=== PATIENT | male | born 2000 | race Caucasian/White ===

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

== ENCOUNTER 2018-07-15 15:58 | Emergency (ER) | payer OTHER ==
[~2018-07-15] VITALS: Ht 170.2 cm; Wt 71.7 kg
[2018-07-15 16:02] VITALS: BP 91/63
--- NOTE | 2018-07-15 16:08 | NUR ---
PATIENT AMBULATED TO ER BED 6
--- NOTE | 2018-07-15 16:25 | NUR ---
PATIENT PRESENTS TO ED WITH C/O SYNCOPE 2 DAYS AGO. PT STATES HE FELT LIGHT HEADED, LOST VISION THEN WOKE UP ON FLOOR. STATES THAT HE HIT BACK OF HEAD ON TILE. SMALL ABRASION NOTED ON BACK OF PT HEAD. MEMORY INTACT, SPEECH CLEAR, GAIT STEADY, FACIAL SYMMETRY INTACT, PERRLA, AAOX4. DENIES N/V/D; LUNGS CLEAR BL; HR EVEN AND REGULAR; PT DENIES ANY FEVER, CP, SOB, OR COUGH AT THIS TIME; DENIES PAIN, VSS; PATIENT POSITIONED FOR COMFORT; HOB ELEVATED; BEDRAILS UP X2; BED DOWN. ER MD MADE AWARE OF PT STATUS.
--- NOTE | 2018-07-15 16:28 | NUR ---
Patient being evaluated by physician at bedside.
--- NOTE | 2018-07-15 17:22 | NUR ---
PT IS RESTING IN BED, NO S/S OF DISTRESS, DENIES PAIN.
[2018-07-15 18:00] VITALS: BP 110/51
--- NOTE | 2018-07-15 18:00 | NUR ---
Patient discharged with v/s stable. Written and verbal after care instructions given and explained. Patient verbalized understanding. Ambulatory with by parent. All questions addressed prior to discharge. Advised to follow up with PMD.
== END 2018-07-15 18:00 | disposition home or self-care (01) ==
LOC: MED 15:58
DX: R55 Syncope and collapse (principal); M54.9 Dorsalgia, unspecified
CPT/HCPCS: 93005; 99283

== ENCOUNTER 2020-02-11 01:52 | Emergency (ER) | payer OTHER ==
[~2020-02-11] VITALS: Ht 170.2 cm; Wt 70.8 kg
[2020-02-11 01:55] VITALS: BP 101/62
--- NOTE | 2020-02-11 02:15 | NUR ---
PT HAS HAD NUMBNESS AND INTERMITTENT PAIN TO RIGHT HAND X 1 MONTH. PT WAS WOKEN UP OUT OF SLEEP DUE TO THE SEVERE PAIN TO MIDDLE AND RING FINGER. PT HAS E[employer] TO BOTH HANDS AT THIS TIME, SKIN INTACT, NO SWELLING OR REDNESS AND PT DENIES ANY KIND OF PRIOR TRAUMA. PT IN BED, BED IN LOWEST POSITION AND SIDERAIL UP X 1. NKA NO HX
--- NOTE | 2020-02-11 02:20 | NUR ---
WRIST AND FOREARM SPLINT PLACED BY PATRICA WASHINGTON.
[2020-02-11 02:28] VITALS: BP 101/62
--- NOTE | 2020-02-11 02:30 | NUR ---
Patient discharged with v/s stable. Written and verbal after care instructions given and explained. Patient verbalized understanding. Ambulatory with steady gait. All questions addressed prior to discharge. Advised to follow up with PMD.
== END 2020-02-11 02:30 | disposition home or self-care (01) ==
LOC: MED 01:52
DX: G56.01 Carpal tunnel syndrome, right upper limb (principal)
CPT/HCPCS: 99283

== ENCOUNTER 2021-07-17 01:28 | Emergency (ER) | payer OTHER ==
[~2021-07-17] VITALS: Ht 170.2 cm; Wt 72.6 kg
[2021-07-17 01:29] VITALS: BP 147/84
--- NOTE | 2021-07-17 01:35 | NUR ---
Jae padron in [facility] - 07/17/21 at 0136 by ROBYN TO BED 9 FOLLOWING TRIAGE
--- NOTE | 2021-07-17 01:36 | NUR ---
TO BED 8 FOLLOWING TRIAGE
--- NOTE | 2021-07-17 01:57 | NUR ---
ERMD at bedside for examination of patient
[2021-07-17] MEDS ORDERED: methylPREDNISolone SS 125 MG in WATER STERILE 2 ML IM ONE (02:05)
[2021-07-17] MEDS ORDERED: WATER STERILE 10 ML MC ONE (02:11)
[2021-07-17] MEDS ORDERED: methylPREDNISolone SS 125 MG/2 ML VIAL ONE (02:11)
--- NOTE | 2021-07-17 02:13 | NUR ---
XR at bedside
[2021-07-17] MEDS ORDERED: CYCL-711 PO (02:30)
[2021-07-17 02:55] VITALS: BP 137/84
--- NOTE | 2021-07-17 02:55 | NUR ---
Patient discharged with v/s stable. Written and verbal after care instructions given and explained. Patient alert, oriented and verbalized understanding of instructions. Ambulatory with steady gait. All questions addressed prior to discharge. ID band removed. Patient advised to follow up with PMD. Rx of cyclobenzaprine given. Patient educated on indication of medication including possible reaction and side effects. Opportunity to ask questions provided and answered.
== END 2021-07-17 02:55 | disposition home or self-care (01) ==
LOC: MED 01:28
DX: G56.03 Carpal tunnel syndrome, bilateral upper limbs (principal); Z98.890 Other specified postprocedural states; Z79.899 Other long term (current) drug therapy
CPT/HCPCS: 73120; 82948; 96372; 99283; J2930; Q0092

== ENCOUNTER 2023-11-22 02:20 | Emergency (ER) | payer OTHER ==
[~2023-11-22] VITALS: Ht 170.2 cm; Wt 69.9 kg
[~2023-11-22 02:20] MED LIST: CYCL-711 PO
[2023-11-22 02:26] VITALS: BP 95/42; PULSE 69; RESP 22; TEMP 97.4; O2SAT 100
[2023-11-22 04:22] VITALS: BP 108/50; PULSE 72; RESP 20; TEMP 97.6; O2SAT 100
== END 2023-11-22 05:14 | disposition home or self-care (01) ==
LOC: MED 02:20
DX: S09.90XA Unspecified injury of head, initial encounter (principal); F10.129 Alcohol abuse with intoxication, unspecified; Z79.899 Other long term (current) drug therapy; W18.39XA Other fall on same level, initial encounter; Y93.89 Activity, other specified; Y92.89 Other specified places as the place of occurrence of the external cause; Y99.8 Other external cause status
CPT/HCPCS: 70450; 99284